=== PATIENT | male | born 2000 | race Two or more races ===

== ENCOUNTER 2019-08-15 16:45 | Emergency (ER) | payer OTHER ==
[~2019-08-15] VITALS: Ht 177.8 cm; Wt 86.2 kg
--- NOTE | 2019-08-15 17:35 | PHYS DOC ---
Adult General Chief Complaint Chief Complaint: ANKLE PROBLEM " I was skating and inverted this right ankle..." HPI HPI Patient is a 19 year old male who presents with above hx and complaints of Rt. ankle injuey while skating. Pt. inverted right ankle. Patient has been unable to bear weight since injury. Has obvious swelling of right foot and ankle. Does have laxity on anterior drawer right ankle. Distal neurovascular is equal to left. No upper leg tenderness. Patient denies any history immunosuppression, fever or other health issues. Pt. follows with Dr. Batres Review of Systems Review of Systems Constitutional: Denies fever or chills [] Eyes: Denies change in visual acuity, redness, or eye pain [] HENT: Denies nasal congestion or sore throat [] Respiratory: Denies cough or shortness of breath [] Cardiovascular: No additional information not addressed in HPI [] GI: Denies abdominal pain, nausea, vomiting, bloody stools or diarrhea [] : Denies dysuria or hematuria [] Musculoskeletal: Complaining of right ankle and foot pain Integument: Denies rash or skin lesions [] Neurologic: Denies headache, focal weakness or sensory changes [] Endocrine: Denies polyuria or polydipsia [] All other systems were reviewed and found to be within normal limits, except as documented in this note. Family History Family History Noncontributory Current Medications Current Medications See nursing for home meds Allergies Allergies No known drug allergies Physical Exam Physical Exam Constitutional: Well developed, well nourished, in moderately acute distress, non-toxic appearance. [] HENT: Normocephalic, atraumatic, bilateral external ears normal, oropharynx moist, no oral exudates, nose normal. [] Eyes: PERRLA, EOMI, conjunctiva normal, no discharge. [] Neck: Normal range of motion, no tenderness, supple, no stridor. [] Cardiovascular:Heart rate regular rhythm, no murmur [] Lungs & Thorax: Bilateral breath sounds clear to auscultation [] Abdomen: Bowel sounds normal, soft, no tenderness, no masses, no pulsatile masses. [] Skin: Warm, dry, no erythema, no rash. [] Back: No tenderness, no CVA tenderness. [] Extremities: No tenderness, no cyanosis, no clubbing, ROM intact, no edema. [] Except Findings in right ankle and foot as per history of present illness Neurologic: Alert and oriented X 3, normal motor function, normal sensory function, no focal deficits noted. [] Psychologic: Affect anxious, judgement normal, mood normal. [] EKG EKG [] Radiology/Procedures Radiology/Procedures [][address] [address] IMAGING REPORT Signed PATIENT: JASWINDER STEPHENS ACCOUNT: [id number] : 2000 LOCATION: ER AGE: 19 SEX: M EXAM STATUS: REG ER ORD. PHYSICIAN: ISMA HAHN MD REASON: Invert- Ice skating PROCEDURE: ANKLE RIGHT 3V EXAM: Right ankle, 3 views. HISTORY: Ankle inversion. COMPARISON: None. FINDINGS: 3 views of the right ankle are obtained. There is no fracture, dislocation or subluxation. The ankle mortise is intact. No osteochondral lesion is seen. IMPRESSION: No acute osseous finding. Electronically signed by: April Valadez MD (08/15/2019 6:12 PM) [facility] DICTATED AND SIGNED BY: APRIL VALADEZ MD DATE: 08/15/191811 CC: NAHUM BATRES MD; ISMA HAHN MD ~ Course & Med Decision Making Course & Med Decision Making Pertinent Labs and Imaging studies reviewed. (See chart for details). Ice, elevation, rest, splint, and follow-up primary care. Tylenol and ibuprofen for pain. Patient to use crutches. Marked pain may take vicoprofen up 4 x day . Impression: 1. Sprained right Ankle and foot [] Dragon Disclaimer Dragon Disclaimer This electronic medical record was generated, in whole or in part, using a voice recognition dictation system. Note there was a computer failure during the work up this patient there may be missing information and/or duplication of record. Departure Departure: Disposition: 01 HOME/RESIDENCE PRIOR TO ADM Condition: STABLE Referrals: NAHUM BATRES MD (PCP) Scripts Hydrocodone/Ibuprofen (HYDROCODONE-IBUPROFEN 7.5-200 ) 1 Each Tablet 1 TAB PO PRN Q6HRS PRN for PAIN, #30 TAB 0 Refills Prov: ISMA HAHN MD 08/15/19 ISMA HAHN MD Aug 15, 2019 17:35
[2019-08-15 17:45] VITALS: BP 100/56
[2019-08-15] MEDS ORDERED: IBUPROFEN 600 MG TABLET. PO ONE (18:00)
--- NOTE | 2019-08-15 18:15 | RAD ---
EXAM: Right ankle, 3 views. HISTORY: Ankle inversion. COMPARISON: None. FINDINGS: 3 views of the right ankle are obtained. There is no fracture, dislocation or subluxation. The ankle mortise is intact. No osteochondral lesion is seen. IMPRESSION: No acute osseous finding. Electronically signed by: April Coronado MD (08/15/2019 6:12 PM) [facility]
[2019-08-15] MEDS ORDERED: HYDR-1179 PO (18:30)
== END 2019-08-15 18:55 | disposition home or self-care (01) ==
LOC: ER 16:45
DX: S93.401A Sprain of unspecified ligament of right ankle, initial encounter (principal); S93.601A Unspecified sprain of right foot, initial encounter; X50.9XXA Other and unspecified overexertion or strenuous movements or postures, initial encounter; Y93.89 Activity, other specified; Y92.89 Other specified places as the place of occurrence of the external cause; Y99.8 Other external cause status
CPT/HCPCS: 29515; 73610; 99284